=== PATIENT | male | born 1980 ===

== ENCOUNTER 2020-11-22 14:52 | Emergency (ER) | payer OTHER ==
[~2020-11-22] VITALS: Ht 177.8 cm; Wt 77.1 kg
[2020-11-22 21:28] VITALS: BP 132/85
[2020-11-23] MEDS ORDERED: NEOMYCIN-BACITRACIN-POLYM 15GM TOP OINT TOP SCH (06:00)
== END 2020-11-23 04:15 | disposition home or self-care (01) ==
LOC: ER 14:52
DX: S51.812A Laceration without foreign body of left forearm, initial encounter (principal); F17.210 Nicotine dependence, cigarettes, uncomplicated; W27.0XXA Contact with workbench tool, initial encounter; Y93.89 Activity, other specified; Y92.89 Other specified places as the place of occurrence of the external cause; Y99.0 Civilian activity done for income or pay
CPT/HCPCS: 12002; 73090